=== PATIENT | male | born 1975 ===

== ENCOUNTER 2021-01-13 10:58 | Inpatient (IN) | payer MEDICAID ==
[~2021-01-13] VITALS: Ht 170.2 cm; Wt 90.5 kg
[2021-01-13 11:54] LABS: BASOPHILS % (AUTO) 1 % (0-1); EOSINOPHILS % (AUTO) 2 % (1-7); LYMPHOCYTES % (AUTO) 37 % (22-44); MEAN CORPUSCULAR HEMOGLOBIN 30.9 pg (27.5-34.5); MEAN CORPUSCULAR HGB CONC 33.7 g/dL (33.2-36.2); MONOCYTES % (AUTO) 7 % (2-9); NEUTROPHILS % (AUTO) 53 % (42-75); PLATELET COUNT 291 x10^3/uL (130-400); RED CELL DISTRIBUTION WIDTH 12.7 % (9.4-14.8)
[2021-01-13 12:01] LABS: MD NO
[2021-01-13 12:04] LABS: ALBUMIN 3.8 g/dL (3.4-5.0); CALCIUM 9.6 mg/dL (8.5-10.1); CREATININE 1.46 mg/dL (0.7-1.3)
[2021-01-13 12:09] LABS: TROPONIN I < 0.015 ng/mL (0.000-0.045)
[2021-01-13 12:12] LABS: ANION GAP 3 mmol/L (5-15); CHLORIDE 109 mmol/L (98-107)
--- NOTE | 2021-01-13 12:31 | NUR ---
PT SITTING UP IN BED, HOB TO LEVEL OF COMFORT. PT REPORTS CP DECREASED OVER PAST HOUR REFLECTED IN VS. NAD NOTED AT THIS TIME. PT ABLE TO STAND AT BEDSIDE FOR URINATION WITHOUT INCREASED PAIN. PARTNER AT BEDSIDE. AWAITING RESULTS.
--- NOTE | 2021-01-13 12:32 | NUR ---
PT CHART UP FOR RECHECK.
[2021-01-13] MEDS ORDERED: SODIUM CHLORIDE FLUSH 10ML SYR IVF PRN (13:30)
--- NOTE | 2021-01-13 13:30 | NUR ---
PT SITTING UP IN BED, RESPIRATIONS EVEN AND UNLABORED ON RA. REPORTS COMFORT AT THIS TIME, DENIES ANY NEEDS. AWARE OF PLAN TO ADMIT. IV STARTED. NAD NOTED AT THIS TIME.
--- NOTE | 2021-01-13 13:46 | NUR ---
REPORT GIVEN TO TOBI ROSADO.
[2021-01-13 14:11] VITALS: BP 128/81
[2021-01-13] MEDS ORDERED: ACETAMINOPHEN 325 MG TABLET PO PRN (15:00)
[2021-01-13] MEDS ORDERED: NITROGLYCERIN 0.4 MG/SPRAY SL PRN (15:00)
[2021-01-13] MEDS ORDERED: morphine SULFATE 10 MG/ML, 1ML IVPush PRN (15:00)
[2021-01-13] MEDS ORDERED: NITROGLYCERIN 0.4 MG BOTTLE (25 TABS) SL PRN (15:00)
[2021-01-13] MEDS: HEPARIN 5,000 UNITS/ML, 1ML SQ SCH ×2 (15:18→23:42)
[2021-01-13 15:21] LABS: CHOL/HDL RATIO 3.9; LDL/HDL RATIO 2.3 (0.5-3.0)
[2021-01-13 15:57] LABS: INTERNATIONAL NORMALIZED RATIO 0.93 (0.93-1.1); PROTHROMBIN TIME 9.9 Seconds (9.6-11.5)
[2021-01-13 16:01] LABS: TROPONIN I < 0.015 ng/mL (0.000-0.045)
[2021-01-13 18:51] VITALS: BP 155/82
[2021-01-13 21:04] LABS: TROPONIN I < 0.015 ng/mL (0.000-0.045)
[2021-01-14 00:57] VITALS: BP 142/76
[2021-01-14 05:29] LABS: BASOPHILS % (AUTO) 1 % (0-1); EOSINOPHILS % (AUTO) 2 % (1-7); LYMPHOCYTES % (AUTO) 39 % (22-44); MEAN CORPUSCULAR HEMOGLOBIN 30.9 pg (27.5-34.5); MEAN CORPUSCULAR HGB CONC 33.7 g/dL (33.2-36.2); MEAN PLATELET VOLUME 7.3 fL (7.4-10.4); MONOCYTES % (AUTO) 7 % (2-9); NEUTROPHILS % (AUTO) 51 % (42-75); PLATELET COUNT 301 x10^3/uL (130-400); RED CELL DISTRIBUTION WIDTH 13.2 % (9.4-14.8)
[2021-01-14 05:30] LABS: MD NO
[2021-01-14 05:38] LABS: ALBUMIN 3.4 g/dL (3.4-5.0); ANION GAP 7 mmol/L (5-15); CALCIUM 8.7 mg/dL (8.5-10.1); CHLORIDE 106 mmol/L (98-107)
[2021-01-14 05:49] LABS: ALANINE AMINOTRANSFERASE 36 U/L (12-78); ALKALINE PHOSPHATASE 77 U/L (45-117); BILIRUBIN,TOTAL 0.4 mg/dL (0.2-1.0); CHOLESTEROL, TOTAL 218 mg/dL (140-239); CREATININE 1.48 mg/dL (0.7-1.3); HDL CHOL % 25 % (26-37); HDL CHOLESTEROL (DIRECT) 55 mg/dL (40-60); LDL CHOLESTEROL,CALCULATED 126 mg/dL (54-169); LDL/HDL RATIO 2.3 (0.5-3.0); TOTAL PROTEIN 7.7 g/dL (6.4-8.2); TRIGLYCERIDES 184 mg/dL (50-200); VLDL CHOLESTEROL 37 mg/dL (0-25)
[2021-01-14] MEDS: HEPARIN 5,000 UNITS/ML, 1ML SQ SCH (06:20)
[2021-01-14] MEDS ORDERED: ASPIRIN 81 MG TABLET EC PO SCH (07:00)
[2021-01-14 07:26] VITALS: BP 116/87
[2021-01-14] MEDS ORDERED: REGADENOSON 0.4 MG/5 ML SYRINGE ONE (08:21)
[2021-01-14] MEDS ORDERED: SODIUM CHLORIDE 0.9% 1,000 ML IV SCH ×2 (12:00→15:30)
[2021-01-14] MEDS ORDERED: LIDOCAINE-MPF 1%, 5ML ONE (13:39)
[2021-01-14] MEDS ORDERED: MIDAZOLAM 1 MG/ML, 5ML ONE (13:39)
[2021-01-14] MEDS ORDERED: FENTANYL PF 100 MCG/2ML ONE (13:39)
[2021-01-14] MEDS ORDERED: BIVALIRUDIN 250 MG ONE (13:39)
[2021-01-14] MEDS ORDERED: TICAGRELOR 90 MG TABLET ONE (13:39)
[2021-01-14] MEDS ORDERED: VERAPAMIL 2.5 MG/ML, 2ML ONE (13:39)
[2021-01-14] MEDS ORDERED: HEPARIN 1,000 UNITS/ML, 10ML ONE (13:40)
[2021-01-14 14:53] VITALS: BP 107/73
[2021-01-14 18:43] VITALS: BP 132/83
[2021-01-14] MEDS ORDERED: ATORVASTATIN 40 MG TABLET PO SCH (21:00)
[2021-01-14] MEDS: TICAGRELOR 90 MG TABLET PO SCH (21:35)
[2021-01-15 01:12] VITALS: BP 115/76
[2021-01-15 05:25] LABS: ANION GAP 6 mmol/L (5-15); CALCIUM 9.4 mg/dL (8.5-10.1); CHLORIDE 106 mmol/L (98-107)
[2021-01-15 05:27] LABS: CREATININE 1.37 mg/dL (0.7-1.3)
[2021-01-15] MEDS: TICAGRELOR 90 MG TABLET PO SCH (08:31)
[2021-01-15 09:00] VITALS: BP 129/82
[2021-01-15] MEDS ORDERED: ASPIRIN 81 MG TABLET EC PO SCH (09:00)
[2021-01-15] MEDS ORDERED: NITR12SP10 SL (09:21)
[2021-01-15] MEDS ORDERED: ASPI81TA45 PO (09:21)
[2021-01-15] MEDS ORDERED: ATOR40TA78 PO (09:21)
[2021-01-15] MEDS ORDERED: TICA90TA PO (09:21)
== END 2021-01-15 10:44 | disposition home or self-care (01) | DRG 175 ==
LOC: ED 13:07 → 5SO 13:08 → INTOOBSV 13:08 → OBSVTOIN 13:08 → ED 13:29 → SUATTDRO 13:39 → DCLOUNGE 01-15 10:38
PROVIDERS: ADMIT Internal Medicine; ATTEND Hospitalist
PROC: 027034Z Dilation of Coronary Artery, One Artery with Drug-eluting Intraluminal Device, Percutaneous Approach (ICD-10-PCS; principal; 2021-01-14)
PROC: 4A023N7 Measurement of Cardiac Sampling and Pressure, Left Heart, Percutaneous Approach (ICD-10-PCS; 2021-01-14)
PROC: B2111ZZ Fluoroscopy of Multiple Coronary Arteries using Low Osmolar Contrast (ICD-10-PCS; 2021-01-14)
PROC: B2151ZZ Fluoroscopy of Left Heart using Low Osmolar Contrast (ICD-10-PCS; 2021-01-14)
DX: I25.110 Atherosclerotic heart disease of native coronary artery with unstable angina pectoris (principal); I11.0 Hypertensive heart disease with heart failure; I50.30 Unspecified diastolic (congestive) heart failure; E78.5 Hyperlipidemia, unspecified; N17.9 Acute kidney failure, unspecified; Z82.49 Family history of ischemic heart disease and other diseases of the circulatory system; Z83.3 Family history of diabetes mellitus
CPT/HCPCS: 36415; 71045; 78452; 80048; 80053; 80061; 82040; 83735; 84100; 84443; 84484; 85025; 85610; 93005; 93017; 93306; 93356; 93458; 93571; 96360; 96372; 99156; 99157; C1769; C1894; C9600; J0583; J1644; J2250; J2785; J3010; A9502; C1725; C1874; C1887; G0378; J7030; Q9967